=== PATIENT | female | born 1955 | race African-American/Black ===

== ENCOUNTER 2017-10-11 09:33 | Emergency (ER) | payer MEDICAID ==
--- NOTE | 2017-10-11 09:51 | ER Document Report ---
ED Medical Screen (RME) - General Chief Complaint: Vaginal Discharge Stated Complaint: BACK PAIN/VAGINAL ISSUES Time Seen by Provider: 10/11/17 09:47 Mode of Arrival: Ambulatory Information source: Patient TRAVEL OUTSIDE OF THE [place] IN LAST 30 DAYS: No - HPI Patient complains to provider of: low back pain; vaginal d/c Onset: Other - Pt. states he has a "vaginal infeciton" with malodorous d/c and low back pain for the past 2 days. - Related Data Allergies/Adverse Reactions: No Known Allergies Allergy (Unverified 10/11/17 09:39) Home Medications: Current Home Medications No Home Medications 10/11/17 [History] Past Medical History Renal/ Medical History: Denies: Hx Peritoneal Dialysis Physical Exam - Vital signs Vitals: Temp Pulse Resp BP Pulse Ox 98.5 F 83 20 166/85 H 100 10/11/17 09:38 10/11/17 09:38 10/11/17 09:38 10/11/17 09:38 10/11/17 09:38 Course - Vital Signs Vital signs: Temp Pulse Resp BP Pulse Ox 98.5 F 83 20 166/85 H 100 10/11/17 09:38 10/11/17 09:38 10/11/17 09:38 10/11/17 09:38 10/11/17 09:38
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
[2017-10-11 10:38] LABS: APPEARANCE,URINE CLEAR; BILIRUBIN,URINE NEGATIVE (NEGATIVE); GLUCOSE, URINE NEGATIVE (NEGATIVE); KETONES,URINE NEGATIVE (NEGATIVE); LEUKOCYTE ESTERASE,URINE NEGATIVE (NEGATIVE); NITRITE,URINE NEGATIVE (NEGATIVE); PROTEIN,URINE NEGATIVE (NEGATIVE); URINE SPECIFIC GRAVITY 1.016; UROBILINOGEN,URINE NEGATIVE mg/dL (<2.0)
[2017-10-11] MEDS ORDERED: ACETAMINOPHEN 325 MG TABLET PO ONE (11:45)
[2017-10-11] MEDS ORDERED: IBUPROFEN 800 MG TABLET PO ONE (11:45)
[2017-10-11 11:54] VITALS: BP 98/64
[2017-10-11 12:04] LABS: CHLAM PCR NOT DETECTED (NOT DETECT)
== END 2017-10-11 11:52 | disposition home or self-care (01) ==
LOC: ER 09:33
DX: N76.0 Acute vaginitis (principal); B96.89 Other specified bacterial agents as the cause of diseases classified elsewhere; M54.5 Low back pain; G89.29 Other chronic pain; R10.2 Pelvic and perineal pain; F17.200 Nicotine dependence, unspecified, uncomplicated
CPT/HCPCS: 81001; 87086; 87210; 87491; 87591; 99283